=== PATIENT | male | born 1970 | race Two or more races ===

== ENCOUNTER 2025-02-19 16:40 | Emergency (ER) | payer OTHER ==
[2025-02-19 17:00] LABS: BASOPHILS ABSOLUTE AUTO 0.02 10^3/uL (0.00-0.50); BASOPHILS PERCENT AUTO 0.2 % (0-1); EOSINOPHILS ABSOLUTE AUTO 0.37 10^3/uL (0.00-1.50); EOSINOPHILS PERCENT AUTO 3.4 % (0-6); HEMATOCRIT 43.6 % (42.0-52.0); HEMOGLOBIN 14.7 g/dL (14.0-18.0); IMMATURE GRAN ABSOLUTE AUTO 0.01 10^3/uL (0.00-0.49); IMMATURE GRAN PERCENT AUTO 0.1 % (0.0-4.9); LYMPHOCYTES PERCENT AUTO 20.4 % (24-44); MEAN CORPUSCULAR HEMOGLOBIN 29.6 pg (27.0-32.0); MEAN CORPUSCULAR HGB CONC 33.7 g/dL (32.0-36.0); MEAN CORPUSCULAR VOLUME 87.7 fL (83.0-97.0); MONOCYTES ABSOLUTE AUTO 1.43 10^3/uL (0.00-1.50); MONOCYTES PERCENT AUTO 13.3 % (0-10); NEUTROPHILS ABSOLUTE AUTO 6.75 x10^3/uL (1.80-8.00); NEUTROPHILS PERCENT AUTO 62.6 % (41-71); PLATELET COUNT,PLT 213 10^3/uL (150-400); RED BLOOD CELL COUNT 4.97 x10^6/uL (4.50-6.00); WHITE BLOOD CELL COUNT,WBC 10.8 10^3/uL (4.0-11.0)
[2025-02-19 17:16] LABS: ALBUMIN 4.1 g/dL (3.4-5.0); BILIRUBIN TOTAL 0.3 mg/dL (0.0-1.0); CALCIUM 9.4 mg/dL (8.4-10.1); CREATININE 1.3 mg/dL (0.7-1.3); EST CRCL DRUG DOSING (CG) 64.96 mL/min; MAGNESIUM 1.9 mg/dL (1.8-2.4); PROTEIN TOTAL,TP 7.6 g/dL (6.4-8.2)
[2025-02-19 17:17] LABS: POTASSIUM,K 2.8 mEq/L (3.5-5.0)
[2025-02-19] MEDS: diphenhydrAMINE 50 MG/ML SDV IVPUSH ONE (17:54)
[2025-02-19] MEDS: LORazepam 2 MG/ML SDV IVPUSH ONE (17:54)
[2025-02-19] MEDS: Potassium Chloride Riders 20 MEQ in Premix Bag 1 BAG IV ONE (17:55)
[2025-02-19] MEDS: Sodium Chloride 0.9% 1,000 ML IV ONE (17:56)
[2025-02-19 18:28] LABS: APPEARANCE,URINE CLEAR (CLEAR); BILIRUBIN,URINE NEGATIVE (NEGATIVE); COLOR,URINE YELLOW (YELLOW); GLUCOSE,URINE NEGATIVE (NEGATIVE); KETONES,URINE 40 mg/dL (NEGATIVE); LEUKOCYTE ESTERASE,URINE NEGATIVE (NEGATIVE); NITRITE,URINE NEGATIVE (NEGATIVE); OCCULT BLOOD,URINE NEGATIVE (NEGATIVE); PROTEIN,URINE NEGATIVE (NEGATIVE); UROBILINOGEN,URINE 0.2 EU/dL (0.2-1.0)
[2025-02-19] MEDS: Potassium Chloride 20 MEQ Tab.ER PO ONE (18:28)
[2025-02-19 18:29] LABS: AMPHETAMINES,URINE NEGATIVE (NEGATIVE); BARBITURATES,URINE NEGATIVE (NEGATIVE); BENZODIAZEPINE,URINE NEGATIVE (NEGATIVE); MDMA (ECSTASY), URINE NEGATIVE (NEGATIVE); METHADONE,URINE NEGATIVE (NEGATIVE); METHAMPHETAMINES,URINE NEGATIVE (NEGATIVE); OPIATES,URINE NEGATIVE (NEGATIVE); OXYCODONE,URINE NEGATIVE (NEGATIVE); PHENCYCLIDINE,URINE NEGATIVE (NEGATIVE); TCA,URINE NEGATIVE (NEGATIVE)
[2025-02-20 15:29] VITALS: BP 152/89; PULSE 111
== END 2025-02-19 19:30 | disposition home or self-care (01) ==
LOC: CC.ED 16:40
DX: E87.6 Hypokalemia (principal); F17.210 Nicotine dependence, cigarettes, uncomplicated
CPT/HCPCS: 36415; 80053; 80305-QW; 81003; 83735; 84484; 85025; 93010; 96365; 96375; 99284; 99285-25; A9270-GY; J1200; J2060; J3480; J7030